=== PATIENT | male | born 1955 | race Caucasian/White ===

== ENCOUNTER → 2023-12-19 08:13 | Outpatient (REF) | payer MEDICARE, OTHER, SELFPAY | LOC: MRI 08:13 | PROVIDERS: ATTENDING PHYSICIAN Otolaryngology; FAMILY PHYSICIAN Family Medicine | DX: C33 Malignant neoplasm of trachea (principal) | CPT/HCPCS: 70542; A9575 ==

== ENCOUNTER → 2024-02-20 17:13 | Outpatient (REF) | payer MEDICARE, OTHER, SELFPAY | LOC: MRI 17:13 | PROVIDERS: ATTENDING PHYSICIAN Otolaryngology | DX: C33 Malignant neoplasm of trachea (principal) | CPT/HCPCS: 72156; A9575 ==

== ENCOUNTER → 2024-07-23 12:03 | Outpatient (REF) | payer MEDICARE, OTHER, SELFPAY | LOC: MRI 3T 12:03 | PROVIDERS: ATTENDING PHYSICIAN Otolaryngology | DX: C33 Malignant neoplasm of trachea (principal) | CPT/HCPCS: 70543; A9575 ==

== ENCOUNTER → 2024-11-19 10:04 | Outpatient (REF) | payer MEDICARE, OTHER, SELFPAY | LOC: MRI 10:04 | PROVIDERS: ATTENDING PHYSICIAN Otolaryngology; FAMILY PHYSICIAN Family Medicine | DX: C33 Malignant neoplasm of trachea (principal) | CPT/HCPCS: 70543; A9575 ==

== ENCOUNTER → 2025-03-25 09:37 | Outpatient (REF) | payer MEDICARE, OTHER, SELFPAY | LOC: MRI 3T 09:37 | PROVIDERS: ATTENDING PHYSICIAN Otolaryngology; FAMILY PHYSICIAN Family Medicine | DX: C33 Malignant neoplasm of trachea (principal) | CPT/HCPCS: 70543; A9575 ==